=== PATIENT | female | born 1985 ===

== ENCOUNTER 2016-12-25 06:02 | Day surgery (SDC) | payer BC ==
[2016-12-25] VITALS (10 sets, daily range): BP systolic 104–128; BP diastolic 70–85
[~2016-12-25] VITALS: Ht 172.7 cm; Wt 51.7 kg
[~2016-12-25 06:02] MED LIST: IBUPROFEN600 MG ORAL
[2016-12-25] MEDS ORDERED: Bupivacaine w/Epi 0.25% 30ml Vial INJ ONE (06:44)
[2016-12-25] MEDS ORDERED: ACETAMINOPHEN325 M1 ORAL (06:51)
--- NOTE | 2016-12-25 07:25 | Pre-Procedure Note/Attestation ---
Pre-Procedure Note/Attestation Complete Prior to Procedure Planned Procedure: right Procedure Narrative: right axillary lymph node biopsy Indications for Procedure Pre-Operative Diagnosis: right axillary adenopathy Attestation I attest that I discussed the nature of the procedure; its benefits; risks and complications; and alternatives (and the risks and benefits of such alternatives ), prior to the procedure, with the patient (or the patient's legal investment representative). I attest that, if there was a reasonable possibility of needing a blood transfusion, the patient (or the patient's legal investment representative) was given the [facility] standardized written summary, pursuant to the Saeed Angeline Blood Safety Act ([place] Health and Safety Code # 1645, as amended). I attest that I re-evaluated the patient just prior to the surgery and that there has been no change in the patient's H&P, except as documented below: CATALINA SIERRA December 25, 2016 07:25
[2016-12-25] MEDS ORDERED: LR 1000ml ONE (07:30)
[2016-12-25] MEDS ORDERED: Lidocaine 1% MPF 10mg/ml 5ml ONE (07:30)
[2016-12-25] MEDS ORDERED: fentaNYL 100 mcg/2 mL IV ONE (07:30)
[2016-12-25] MEDS ORDERED: Propofol 10mg/ml 20ml IV ONE (07:30)
[2016-12-25] MEDS ORDERED: Metoclopramide 10mg/2ml Inj ONE (07:30)
[2016-12-25] MEDS ORDERED: Dexamethasone 4mg/ml vial ONE (07:30)
[2016-12-25] MEDS ORDERED: Midazolam 2mg/2ml Inj ONE (07:30)
[2016-12-25] MEDS ORDERED: Ketorolac 30mg Inj ONE (07:30)
[2016-12-25] MEDS ORDERED: Surgicel 4in x 8in TOPIC ONE (08:02)
--- NOTE | 2016-12-25 08:36 | Immediate Post-Op Evaluation ---
Immediate Post-Op Evalulation Immediate Post-Op Evalulation Procedure: right axillary lymph node bx Date of Evaluation: December 25, 2016 Time of Evaluation: 08:30 IV Fluids: 600 Blood Pressure Systolic: 128 Blood Pressure Diastolic: 82 Pulse Rate: 82 Respiratory Rate: 14 O2 Sat by Pulse Oximetry: 100 Temperature (Fahrenheit): 97.1 Nausea: No Vomiting: No Complications none Patient Status: awake, reacts, patent Hydration Status: adequate Drug: ancef Given Within 1 Hr of Incision: Yes Time Given: 07:30 LANRE TEE CRNA December 25, 2016 08:36
--- NOTE | 2016-12-25 08:38 | Anethesia Preoperative Eval ---
Anesthesia Pre-op PMH/ROS General Date of Evaluation: December 25, 2016 Time of Evaluation: 07:00 Anesthesiologist: edwin ASA Score: ASA 2 Mallampati Score Class I : Soft palate, uvula, fauces, pillars visible Class II: Soft palate, uvula, fauces visible Class III: Soft palate, base of uvula visible Class IV: Only hard plate visible Mallampati Classification: Class II Surgeon: van Diagnosis: adenopathy lymph node Surgical Procedure: right axillarynode bx Anesthesia History: none Social History: smoking Family History: no anesthesia problems Allergies: Coded Allergies: No Known Allergies (Unverified , 12/24/16) Medications: see eMAR Past Medical History Cardiovascular: Denies: CAD, HTN, IA, arrhythmia, other, valve dz Pulmonary: Denies: COPD, ALEX, asthma, other Gastrointestinal/Genitourinary: Denies: CRI, ESRD, GERD, other Neurologic/Psychiatric: Reports: depression/anxiety Endocrine: Denies: DM, hypothyroidism, other, steroids HEENT: Denies: [place] (L), [place] (R), cataract (L), cataract (R), glaucoma, other Hematology/Immune: Denies: DVT, anemia, bleeding disorder, other PSxH Narrative: none Anesthesia Pre-op Phys. Exam Physician Exam Last Vital Signs Date Time Temp Pulse Resp B/P Pulse Ox O2 Delivery O2 Flow Rate FiO2 12/25/16 06:43 98.4 80 20 110/73 100 Room Air Constitutional: NAD Neurologic: CN 2-12 intact Cardiovascular: RRR Respiratory: CTA Gastrointestinal: S/NT/ND Airway Exam Mallampati Classification 2 Mallampati Score: Class II MO: full ROM: full Dentures: no lower, no upper Anesthesia Pre-op A/P Labs Urine Test Test 12/25/16 06:15 Urine HCG, Qualitative Negative Studies Pre-op Studies: EKG - sr Risk Assessment & Plan Assessment: normal Plan: general Status Change Before Surgery: No Pre-Antibiotics Drug: ancef Given Within 1 Hr of Incision: Yes Time Given: 07:30 LANRE TEE CRNA December 25, 2016 08:38
[2016-12-25] MEDS ORDERED: fentaNYL 100 mcg/2 mL IV PRN (08:45)
[2016-12-25] MEDS ORDERED: Meperidine 25mg/0.5ml Inj IV PRN (08:45)
--- NOTE | 2016-12-25 08:48 | Brief Operative Note ---
Immediate Post Operative Note Operative Note Pre-op Diagnosis: right axillary adenopathy Procedure: right axillary lymph node biopsy Post-op Diagnosis: same as pre-op Findings: other - firmm chain of matted hard lymph nodes Surgeon: van Anesthesiologist: Dio Anesthesia: general Specimen: yes Complications: none Condition: stable Estimated Blood Loss: minimal Drains: none Implant(s) used?: No CATALINA SIERRA December 25, 2016 08:48
[2016-12-25] MEDS ORDERED: HYDROmorphone 1mg/ml Carpuject SUBQ PRN (10:15)
[2016-12-25] MEDS ORDERED: Tylenol #3 tab (300mg/30mg) ORAL PRN (10:15)
--- NOTE | 2016-12-25 10:59 | 48 Hour Post Anesthesia Eval ---
Post Anesthesia Evaluation Procedure: right axillary lymph node bx Date of Evaluation: December 25, 2016 Time of Evaluation: 10:58 Blood Pressure Systolic: 125 0: 50 Pulse Rate: 74 Respiratory Rate: 14 O2 Sat by Pulse Oximetry: 100 Airway: patent Nausea: No Vomiting: No Hydration Status: adequate Mental Status/LOC: patient returned to baseline Post-Anesthesia Complications: none Follow-up care needed: N/A LANRE TEE CRNA December 25, 2016 10:59
--- NOTE | 2016-12-25 17:28 | Operative Note - Dictated ---
DATE OF OPERATION: 12/25/2016 SURGEON: Corey Bosch M.D. LOAN EXAMINER: None. ANESTHESIOLOGIST: Lashanda Wharton. ANESTHESIA: General. PREOPERATIVE DIAGNOSIS: Right axillary adenopathy, rule out lymphoma. POSTOPERATIVE DIAGNOSIS: Right axillary adenopathy, rule out lymphoma. NAME OF OPERATION: Right axillary lymph node biopsy. FINDINGS AND INDICATIONS: The patient is a very pleasant 31-year-old female, originally from [place], with a history of increasing right axillary adenopathy with some degree of pain and occasional night sweats. There is no weight loss. No nausea or vomiting. No prior similar episodes. The patient was given two antibiotic treatments without any change, came to see me and I advised her to undergo axillary lymph node biopsy after I obtained a CAT scan of the neck, chest, abdomen, and pelvis, which only showed a very peculiar inflammatory right axillary lymph node right underneath the pectoralis minor and major and extending up high into the axilla. There was a surrounding fatty layer of inflammatory tissue with stranding. At surgery indeed, very hard lymph nodes were found, a matted chain of small to medium lymph nodes all the way down from the 2nd to the 3rd level of the axilla. I removed about half of it in the lower part, not risking any injury to any of the high axillary contents are any nerves. The procedure was done uneventfully as described below. PROCEDURE DESCRIPTION: With the patient lying in the supine position on the operating table, under general anesthesia, with the entire right axillary area and chest prepped and draped in the usual sterile fashion with Betadine, a transverse incision was carried out in the axilla. Following skin lines, subcutaneous tissues were divided. The axillary contents were then carefully dissected free, and by blunt and sharp means I was able to go around the very hard lymph nodes, the lower part of the chain, and hemostasis was achieved with hemoclips and with Vicryl ties. A specimen was then removed and sent to pathology. The area was thoroughly irrigated with normal saline and hemostasis was double checked, which was adequate with cautery as well as hemoclips. A small piece of Surgicel was placed into the base, where it was the raw surface against the other lymph nodes, and the deep tissues were closed with 2-0 Vicryl subcutaneous sutures, 3-0 Vicryl subcutaneous, and 4-0 Vicryl subcuticular sutures and Steri-Strips. Marcaine 0.25% with epinephrine 20 mL was injected for long-acting local anesthetic. The patient tolerated the procedure well. Estimated blood loss was less than 5 mL. Sponge and needle counts were correct. She went to the recovery room in a stable condition. Corey Bosch M.D. DR: SHARON JOB#: [id number] CC:
== END 2016-12-25 13:45 | disposition home or self-care (01) ==
LOC: SUR 06:02
DX: C84.6 Anaplastic large cell lymphoma, ALK-positive (principal); F32.9 Major depressive disorder, single episode, unspecified; F41.9 Anxiety disorder, unspecified
CPT/HCPCS: 38525; 81025; J0690; J1100; J1885; J2250; J2405; J2704; J2765; J3010; J7120; 94003; 94150; J2180